=== PATIENT | male | born 1985 | race African-American/Black ===

== ENCOUNTER 2017-02-07 13:00 | Inpatient (IN) | payer OTHER ==
--- NOTE | ~2017-02-07 | PN ---
Unit #: [id number] #: [id number] Patient: ZAIN CASTANEDA [id number] [facility] [address] [place] [address] [id number] MR#: [id number] NAME: ZAIN CASTANEDA. ROOM: 61 Age: 31 Sex: M Admission Date: 02/07/2017 : 1985 Attending Physician: Darcy Keller M.D. Admitting Physician: Darcy Keller M.D. Primary Care Physician: Primary Care Physician Gabrielle LYMAN PROGRESS NOTES DATE 02/10/2017 DISCUSSION Mr. Castaneda is a 31-year-old, male who was seen today and chart was reviewed and case was discussed with the staff. He has been anxious, withdrawn and rather seclusive to himself. Meanwhile, he has been cooperative with the treatment recommendations. He has been taking the medication and tolerating them fairly well with no reported side effects. MENTAL STATUS EXAM Young male who was casually dressed with fair personal hygiene, appears to be in no acute distress or discomfort. He was awake and alert on interaction with intact orientation. His mood was anxious with congruent affect. He denies any suicidal or homicidal ideation. Also, denies any auditory or visual hallucinations. His insight and judgement remains slightly impaired. TREATMENT PLAN 1. We will continue him on his current medications and treatment protocol. We will monitor his response to the medication and make further adjustments as needed. 2. We will continue to follow up. Dictated by... Javier Sandy/floridalma TD: 02/11/2017 03:39 JOB #: [id number] Unit #: [id number] #: [id number] Patient: ZAIN CASTANEDA [facility] PROGRESS NOTES Page 1 of 1 X Darcy Keller MD X PROGRESS NOTE
--- NOTE | ~2017-02-07 | HP ---
Unit #: [id number] #: [id number] Patient: ZAIN CROOKS [id number] [place] [address] [id number] I MR#: [id number] NAME: ZAIN CROOKS. ROOM: P261 Age: 31 Sex: M Admission Date: 02/07/2017 : 1985 Attending Physician: Darcy Keller M.D. Admitting Physician: Darcy Keller M.D. Primary Care Physician: Primary Care Physician No HISTORY AND PHYSICAL HISTORY OF PRESENT ILLNESS Zain is a 31 year old, admitted to [address] [place] [address], reporting auditory hallucinations. He does have a diagnosis of schizophrenia. He has had other admissions to this facility. PAST MEDICAL HISTORY History of alcohol abuse. He has been sober for many weeks. PAST SURGICAL HISTORY Fractured jaw with open reduction and internal fixation. ALLERGIES No known drug allergies. SOCIAL HISTORY He smokes less than one pack per day. He has a history of alcohol abuse, reports that he has been sober for "many weeks." He denies illicit drug use. FAMILY HISTORY Medically noncontributory. REVIEW OF SYSTEMS CONSTITUTIONAL: No fever or chills. HEENT: Denies any sore throat, ear pain or runny nose. CARDIOVASCULAR: Denies chest pain, irregular heart rhythm or palpitations. CHEST: Denies shortness of breath or cough. No hemoptysis. GASTROINTESTINAL: Denies nausea, vomiting, diarrhea or chronic constipation. ENDOCRINE: Denies history of increased thirst or urination. No recent significant weight loss or gain. GENITOURINARY: Denies dysuria, frequency, or hematuria. SKIN: Denies any rashes. HEMATOLOGIC: Denies history of increased bleeding or bruising. MUSCULOSKELETAL: Denies any hot, swollen joints. No generalized muscle pain. NEUROLOGIC: Denies problems with vision or speech. No frequent, severe headaches. No numbness, tingling or weakness in any extremities. Denies loss of bladder or bowel control. CURRENT MEDICATIONS 1. Nicotine patch 7 mg daily 2. Desyrel 100 mg q.h.s. p.r.n. Unit #: [id number] #: [id number] Patient: ZAIN CROOKS 3. Milk of magnesia p.r.n. 4. Maalox p.r.n. PHYSICAL EXAMINATION GENERAL: Alert, well-nourished, no apparent distress. VITAL SIGNS: Blood pressure 105/70, heart rate 84, respirations 16, and temperature 98.6. WEIGHT: 210 pounds. HEIGHT: 5 feet 11 inches. SKIN: Warm and dry without rash or lesion. HEENT: Normocephalic. TMs not viewed. Oral and nasal passages clear. Conjunctivae clear. PERRLA. EOMs intact. NECK: Supple without lymphadenopathy or thyromegaly. HEART: Regular rate and rhythm without murmur. LUNGS: Clear. ABDOMEN: Soft, nontender. : Not done. EXTREMITIES: No evidence of cyanosis, clubbing or edema. Moves all without focal deficit. NEUROLOGICAL: Grossly within normal limits. Cranial Nerves: II: Visual araiza are intact. III, IV AND : Extraocular movements are intact. Pupils are equal, round and reactive to light. V: Facial sensation is grossly normal. VII: Facial movements and expression are normal. VIII: Auditory acuity grossly intact. IX, X: Uvula is midline. Phonation is normal. XI: Patient shrugs shoulders and turns head normally. XII: Tongue protrudes in the midline. Sensory and Motor Function: Sensory and motor sensation is grossly normal. Motor: moves all extremities well. Coordination: Gait is normal. Deep Tendon Reflexes: Intact. IMPRESSION Psychiatric admission. RECOMMENDATIONS Psychiatric, per psychiatrist. MEDICAL I see no contraindications to participating in facility's activities. MEDICAL PROGNOSIS Good. MEDICAL CONDITION Stable. Dictated by... Hailey Stein P.A.-C. for Javier Lehman/yanet TD: 02/08/2017 09:09 JOB #: [id number] Unit #: [id number] #: [id number] Patient: ZAIN CROOKS HISTORY AND PHYSICAL Page 1 of 1 X Hailey Stein HISTORY AND PHYSICAL
--- NOTE | ~2017-02-07 | PN ---
Unit #: [id number] #: [id number] Patient: ZAIN CASTANEDA [id number] [facility] [address] [place] [address] [id number] I MR#: [id number] NAME: ZAIN CASTANEDA. ROOM: P261 Age: 31 Sex: M Admission Date: 02/07/2017 : 1985 Attending Physician: Darcy Keller M.D. Admitting Physician: Darcy Keller M.D. Primary Care Physician: Primary Care Physician Gabrielle LYMAN PROGRESS NOTES DATE 02/11/2017 DISCUSSION Mr. Castaneda is a 31-year-old, male who was seen today and chart was reviewed and case was discussed with the staff. He has been anxious, withdrawn though has not shown any . Meanwhile, he has been taking the medications and has received his Invega Sustenna injection without any tolerability issues. MENTAL STATUS EXAM Young male who was casually dressed with fair personal hygiene, appears to be in no acute distress or discomfort. He was awake and alert on interaction with intact orientation. His mood was anxious with congruent affect. He denies any suicidal or homicidal ideations. His insight and judgement remains slightly impaired. TREATMENT PLAN 1. We will continue him on his current medications and treatment protocol. We will monitor his response to the medications and make further adjustments as needed. 2. We will continue to follow up. Dictated by... Javier Sandy/floridalma TD: 02/13/2017 21:47 JOB #: [id number] Unit #: [id number] #: [id number] Patient: ZAIN CASTANEDA [facility] PROGRESS NOTES Page 1 of 1 X Darcy Keller MD X PROGRESS NOTE
--- NOTE | ~2017-02-07 | PA ---
Unit #: [id number] #: [id number] Patient: ZAIN CASTANEDA [id number] [facility] [address] [place] [address] [id number] I MR#: [id number] NAME: ZAIN CASTANEDA ROOM: P261 Age: 31 Sex: M Admission Date: 02/07/2017 : 1985 Date of Assessment: 02/07/2017 Attending Physician: Darcy Keller M.D. Admitting Physician: Darcy Keller M.D. Primary Care Physician: Primary Care Physician No PSYCHIATRIC ASSESSMENT DATE OF SERVICE 02/07/2017. IDENTIFYING DATA Mr. Castaneda is a 31-year-old single male, who is a resident of [place], [place] and is known to us from previous encounter and was self-referred to the hospital. CHIEF COMPLAINT "I came in today because I'm hearing voices that tell me to commit suicide." HISTORY OF PRESENT ILLNESS Mr. Castaneda is a 31-year-old male with history of chronic paranoid schizophrenia, who is known to me from previous encounter and was self-referred to the hospital reporting that he has been hearing voices telling him to kill himself and reports increasing stress and anxiety and he is unable to complete his work duties because the voices get loud and reports that he is supposed to be on a shot for schizophrenia, but it is not working as he is still hearing voice and reports that the voices are constant and will only quit down when he is sitting alone and reports that the last time he heard the voices was today and reports that he has been depressed due to the voices and does report increasing depression, anxiety, feelings of hopelessness and helplessness, and suicidal ideations with intent and plan. SUBSTANCE ABUSE HISTORY The patient reports history of alcohol abuse, but denies any current substance abuse issues. PAST PSYCHIATRIC HISTORY The patient has had a history of inpatient psychiatric hospitalization at [facility] and at other facilities, and review of the medical records indicate that he has been diagnosed and treated for chronic paranoid schizophrenia and is supposed to be on Invega Sustenna. PAST MEDICAL HISTORY The patient's medical history is insignificant. ALLERGIES No known medication allergies. PERSONAL AND SOCIAL HISTORY Unit #: [id number] #: [id number] Patient: ZAIN CASTANEDA A 31-year-old male, who reports that he is single, employed, and lives by himself and has poor social support system. MENTAL STATUS EXAMINATION Young male, who was casually dressed with fair personal hygiene, appears to be in no acute distress or discomfort. He was awake and alert on interaction with intact orientation to time, place, and person. His mood was anxious and depressed with a congruent affect. His speech was slow and restricted in content. His thought processes were disorganized with some looseness of associations and suicidal ideations and command auditory hallucinations. His insight and judgment remain significantly impaired. DIAGNOSTIC IMPRESSION Psychiatric: Chronic paranoid schizophrenia by history. Medical: None. Stressors: Moderate psychosocial stressors. TREATMENT PLAN 1. The patient has presented with a history of chronic mental illness and has been decompensating and will need inpatient hospitalization for safety and stabilization. We will start him back on his home medications and we will adjust the medications and monitor response. 2. Supportive therapy was provided to the patient. 3. Safe, structured, and nourishing environment will be provided. ESTIMATED LENGTH OF STAY 5 to 7 days. ABILITY TO HELP SELF Limited. WILLINGNESS TO HELP SELF The patient appears to be willing to help self. STRENGTHS 1. Communicative. 2. Cooperative. PROBLEMS 1. Chronic dysphoric symptoms. 2. Poor social support system. DISCHARGE CRITERIA This will be contingent upon the patient's ability to show resolution of his depression and psychosis and his ability to stay safe to himself and others, particularly after discharge from the hospital. Dictated by... Javier Sandy/romulo TD: 02/08/2017 15:48 JOB #: [id number] Unit #: [id number] #: [id number] Patient: ZAIN CASTANEDA PSYCHIATRIC ASSESSMENT Page 1 of 1 X Darcy Keller MD X PSYCHIATRIC ASSESSMENT
--- NOTE | ~2017-02-07 | DS ---
Unit #: [id number] #: [id number] Patient: [facility]AIN [facility]ANEDA [id number] [facility] [address] [place] [address] [id number] I MR#: [id number] NAME: ZAIN CASTANEDA. ROOM: 61 Age: 31 Sex: M Admission Date: 02/07/2017 : 1985 Discharge Date: 02/12/2017 Attending Physician: Darcy Keller M.D. DISCHARGE SUMMARY IDENTIFYING DATA Mr. Castaneda is a 31-year-old single male, who is a resident of [place], [place] and known to us from previous encounter and was self-referred to the hospital. DISCHARGE DIAGNOSES Psychiatric: Chronic paranoid schizophrenia. Medical: None. Stressors: Moderate psychosocial stressors. HISTORY OF PRESENT ILLNESS Please see initial psychiatric evaluation for details. PAST PSYCHIATRIC HISTORY Please see initial psychiatric evaluation for details. PAST MEDICAL HISTORY Please see initial psychiatric evaluation for details. HOSPITAL COURSE The patient was admitted to the adult chemical dependency unit at [facility] and was oriented to the hospital environment. Routine p.r.n. medications were initiated, and he was started back on his home medication and was supposed to be on a long-acting injectable antipsychotic and was given his injection while on the unit. He was seen to be doing much better with good therapeutic efficacy and response without any tolerability issues, and was denying any suicidal or homicidal ideation, and was not seen to be danger to self or anyone else and as such, it was decided that he will be discharged home and will continue treatment on an outpatient basis. DISCHARGE MEDICATIONS Invega Sustenna 234 mg intramuscular every 30 days. DISCHARGE CONDITION Stable. PROGNOSIS Fair. Dictated by... Darcy Keller M.D. Unit #: [id number] #: [id number] Patient: ZAIN CASTANEDA IAA/modl TD: 02/13/2017 01:44 JOB #: [id number] DISCHARGE SUMMARY Page 1 of 1 X Darcy Keller MD X DISCHARGE SUMMARY
--- NOTE | ~2017-02-07 | TN ---
Unit #: [id number] #: [id number] Patient: ZAIN CASTANEDA [id number] [facility] [place] [address] [id number] I MR#: [id number] NAME: ZAIN CASTANEDA. ROOM: P261 Age: 31 Sex: M Admission Date: 02/07/2017 : 1985 Discharge Date: 02/12/2017 Attending Physician: Darcy Keller M.D. Primary Care Physician: Primary Care Physician No LOC TRANSFER NOTE DATE OF SERVICE: 02/24/2017 HISTORY OF PRESENT ILLNESS Mr. Castaneda is a 31-year-old, single, male who was stepped down to the outpatient treatment program from the adult inpatient psychiatric unit, where he was [facility], and was brought to the hospital with acute psychosis, and has a diagnosis of chronic paranoid schizophrenia and having command auditory hallucination, and disorganized thoughts, speech, and behavior, and exhibiting both the positive and negative symptoms of psychosis complicated by his poor compliance with treatment and as such, he was enrolled into the Invega Sustenna long-acting injectable program and was able to receive his injection while on the unit followed by which, he was stepped down. Upon evaluation by me, the patient reports that he is still hearing voices for a few days after he came out of the hospital, but they have been getting much better and he wants to get into treatment and does not want to achieve long-term sobriety. He denies any depression, agitation, aggression, or hostility was noted. SUBSTANCE ABUSE HISTORY The patient denies any current alcohol or drug abuse. PAST PSYCHIATRIC HISTORY The patient has had history of inpatient psychiatric hospitalization in [place] at crisis stabilization unit [facility] well [facility] and has been diagnosed and treated for chronic paranoid schizophrenia and is currently on Invega Sustenna 234 mg intramuscular once a month. PAST MEDICAL HISTORY No acute or chronic medical illnesses. ALLERGIES No known medication allergies. PERSONAL AND SOCIAL HISTORY A 31-year-old male who reports that he is single, unemployed, and lives in a residential facility, but that he does not like there and hopes that he will be able to have his own place. MENTAL STATUS EXAMINATION Young male who was casually dressed with fair personal hygiene, appears to be in no acute distress or discomfort. He was awake and alert on interaction with intact orientation to time, place, and Unit #: [id number] #: [id number] Patient: ZAIN CASTANEDA. His mood was anxious and depressed with a congruent affect. His speech was slow and goal directed. He denies any suicidal or homicidal ideations, and also denies any auditory or visual hallucinations. His insight and judgment remain slightly impaired. DIAGNOSTIC IMPRESSION Psychiatric: Chronic paranoid schizophrenia. Medical: None. Stressors: Moderate psychosocial stressors. TREATMENT PLAN 1. The patient has presented with history of mood disorder. We will recommend enrolling him into the outpatient treatment program and maintaining him on his current medications. We will adjust the medications and monitor response. 2. Supportive therapy was provided to the patient. ESTIMATED LENGTH OF STAY 14 to 21 days. ABILITY TO HELP SELF Limited. WILLINGNESS TO HELP SELF The patient appears to be willing to help self. STRENGTHS 1. Communicative. 2. Cooperative. PROBLEMS 1. Chronic dysphoric symptoms. 2. Poor social support system. DISCHARGE CRITERIA This will be contingent upon the patient's ability to show resolution of his depression and psychosis and his ability to stay safe to himself and others, particularly after discharge from the program. Dictated by... Darcy Keller M.D. MICHELLE/romulo TD: 02/24/2017 17:41 JOB #: [id number] LOC TRANSFER NOTE Page 1 of 1 X Darcy Keller MD X LOC TRANSFER NOTE
--- NOTE | ~2017-02-07 | PN ---
Unit #: [id number] #: [id number] Patient: ZAIN CASTANEDA [id number] [facility] [address] [place] [address] [id number] MR#: [id number] NAME: ZAIN CASTANEDA. ROOM: P261 Age: 31 Sex: M Admission Date: 02/07/2017 : 1985 Attending Physician: Darcy Keller M.D. Admitting Physician: Darcy Keller M.D. Primary Care Physician: Primary Care Physician Gabrielle ANDERSON NOTES DATE OF SERVICE 02/09/2017 DISCUSSION Mr. Castaneda is a 31-year-old male with history of schizophrenia who was seen today. Chart was reviewed and case was discussed with staff. He remains anxious, withdrawn, and rather seclusive to himself with blunted affect and minimal interaction. Meanwhile, he has been taking the medications and tolerating them fairly well with no reported side effects. MENTAL STATUS EXAMINATION A young male who is casually dressed with fair personal hygiene appears to be in no acute distress or discomfort. He was awake and alert on interaction with intact orientation. His mood is anxious with congruent affect. He denies any suicidal or homicidal ideations. His thought processes were disorganized with some looseness of associations, thought blocking, paranoid ideations, and delusional behavior. His insight and judgment remain significantly impaired. TREATMENT PLAN 1. We will continue him on his current medications and treatment protocol including intramuscular injection of Invega Sustenna. 2. We will continue to follow up. Dictated by... Javier Sandy/scottie TD: 02/09/2017 14:30 JOB #: [id number] Unit #: [id number] #: [id number] Patient: ZAIN CASTANEDA [facility] PROGRESS NOTES Page 1 of 1 X Darcy Keller MD PROGRESS NOTE
--- NOTE | ~2017-02-07 | PN ---
Unit #: [id number] #: [id number] Patient: ZAIN CASTANEDA [id number] [facility] [address] [place] [address] [id number] MR#: [id number] NAME: ZAIN CASTANEDA. ROOM: 61 Age: 31 Sex: M Admission Date: 02/07/2017 : 1985 Attending Physician: Darcy Keller M.D. Admitting Physician: Darcy Keller M.D. Primary Care Physician: Primary Care Physician Gabrielle ANDERSON NOTES DATE 02/08/2017 DISCUSSION Mr. Castaneda is a 31-year-old, male who was seen today and chart was reviewed and case was discussed with the staff. He has been anxious, withdrawn and rather seclusive to himself. Meanwhile, he has been cooperative with the treatment recommendations. He has been taking the medication and tolerating them fairly well with no reported side effects. MENTAL STATUS EXAM Young male who was casually dressed with fair personal hygiene, appears to be in no acute distress or discomfort. He was awake and alert with impaired attention and concentration. His mood was anxious with congruent affect. His speech was slow and restricted in content. His thought processing was disorganized with some looseness of association and paranoid ideations. His insight and judgement remains slightly impaired. TREATMENT PLAN 1. We will continue him on his current medications and treatment protocol. We will monitor his response to the medication and make further adjustments as needed. 2. We will continue to follow up. Dictated by... Javier aSndy/floridalma TD: 02/09/2017 02:53 JOB #: [id number] Unit #: [id number] #: [id number] Patient: ZAIN CASTANEDA E[facility]ER PROGRESS NOTES Page 1 of 1 X Darcy Keller MD PROGRESS NOTE
[2017-02-08 09:39] LABS: BASOPHIL# 0.1 X10e3 (0-0.3); BASOPHIL% 1.2 % (0-2.5); EOSINOPHIL# 0.1 X10e3 (0-0.7); EOSINOPHIL% 1.7 % (0.0-7.0); HEMATOCRIT 42.6 % (38.0-50.0); HEMOGLOBIN 14.7 gm/dL (13.0-16.0); LYMPHOCYTE# 2.1 X10e3 (1.0-3.5); LYMPHOCYTE% 44.9 % (17.0-45.0); MEAN CELL VOLUME 84.8 FL (83-96); MEAN CORPUSCULAR HEMOGLOBIN 29.3 PG (28-34); MEAN CORPUSCULAR HGB CONC 34.6 g/dL (30-36); MEAN PLATELET VOLUME 8.5 FL (6.5-11.5); MONOCYTE# 0.3 X10e3 (0-1.0); MONOCYTE% 6.5 % (3.0-12.0); NEUTROPHIL# 2.1 X10e3 (1.5-7.1); NEUTROPHIL% 45.7 % (40-75); PLATELET COUNT 220 X10e3 (140-420); RED BLOOD COUNT 5.03 X10e (3.90-5.60); RED CELL DISTRIBUTION WIDTH 13.5 % (11.0-15.5); WHITE BLOOD COUNT 4.6 X10e3 (4.0-10.5)
[2017-02-08 09:42] LABS: URINE APPEARANCE TURBID; URINE BILIRUBIN NEG (NEG); URINE BLOOD NEG (NEG); URINE COLOR YELLOW; URINE GLUCOSE NEG (NEG); URINE KETONE NEG (NEG); URINE LEUKOCYTE ESTERASE NEG (NEG); URINE NITRATE NEG (NEG); URINE PH 5.5 (5-8); URINE PROTEIN NEG (NEG); URINE SPECIFIC GRAVITY 1.031 (1.003-1.035)
[2017-02-08 09:52] LABS: DIFF IND NO
[2017-02-08 09:57] LABS: ALBUMIN SERUM 3.8 g/dL (3.5-5.0); BILIRUBIN,TOTAL 1.1 mg/dL (0.2-2.0); BUN/CREATININE RATIO 16.25; CALCIUM SERUM 9.1 mg/dL (8.4-10.2); CREATININE SERUM 0.8 mg/dL (0.6-1.4); PROTEIN TOTAL SERUM 6.8 g/dL (6.0-8.3)
[2017-02-08 11:07] LABS: AMPHETAMINE NEG (NEG); BARBITURATES NEG (NEG); BENZODIAZEPINES NEG (NEG); COCAINE NEG (NEG); MARIJUANA NEG (NEG); OPIATES NEG (NEG); TRICYCLIC ANTIDEPRESSANTS NEG (NEG); U METHADONE NEG (NEG)
== END 2017-02-12 11:15 | disposition home or self-care (01) | DRG 885 ==
LOC: P2L 16:17
PROVIDERS: Psychiatry & Neurology Psychiatry
DX: F20.0 Paranoid schizophrenia (principal); F17.210 Nicotine dependence, cigarettes, uncomplicated
CPT/HCPCS: 80053; 80307; 81003; 85025